=== PATIENT | male | born 1970 | race Caucasian/White ===

== ENCOUNTER 2023-09-21 08:30 | Inpatient (IN) | payer OTHER, MEDICAID ==
[~2023-09-21] VITALS: Ht 193 cm; Wt 114.7 kg
[2023-09-21] MEDS: CLINDAMYCIN 600MG IV 50 ML IV ONE (09:30)
[2023-09-21] MEDS: SODIUM CHLORIDE 0.9% 500 ML IV ONE (09:30)
[2023-09-21 10:26] LABS: Basophils # (auto) 0.1 10 ^3/uL (0-0.2); Basophils % (auto) 1.1 % (0.0-2.0); Eosinophils # (auto) 0.2 10 ^3/uL (0-0.8); Eosinophils % (auto) 2.8 % (0.0-7.0); Hemoglobin 14.4 g/dL (13.5-17.5); Lymphocytes # (auto) 1.9 10 ^3/uL (0.4-5.4); Mean Corpuscular Hemoglobin 31.9 pg (28.0-32.0); Mean Corpuscular Hgb Conc. 34.3 g/dL (32.0-36.0); Mean Corpuscular Volume 92.8 fL (80.0-100.0); Monocytes # (auto) 0.8 10 ^3/uL (0-1.3); Monocytes % (auto) 9.1 % (0.0-12.0); Neutrophils # (auto) 5.6 10 ^3/uL (1.6-8.6); Nucleated Red Blood Cells % 0.1 %; Red Blood Cells 4.52 10^6/uL (4.5-5.90); Red Cell Distribution Width 13.9 % (11.8-14.3); White Blood Cell 8.7 10^3/uL (4.4-10.8)
[2023-09-21 10:53] LABS: Chloride 106 mmol/L (98-107); Potassium 3.7 mmol/L (3.5-5.1); Sodium 137 mmol/L (136-145)
[2023-09-21 10:54] LABS: Anion Gap 4 (5-15); Calcium 9.5 mg/dL (8.5-10.1); Carbon Dioxide 27 mmol/L (20-30)
[2023-09-21 10:56] LABS: Urine Blood Negative /uL (Negative); Urine Clarity Clear (Clear); Urine Color Light-Yellow (Yellow); Urine Protein, UAD Negative (Negative); Urine Urobilinogen Normal (Negative); Urine WBC 1 /hpf (0 - 3)
[2023-09-21 10:58] LABS: Urine Bacteria None Seen /hpf (None Seen)
[2023-09-21 10:59] LABS: BUN/Creatinine Ratio 9.6 (10.0-20.0); Blood Urea Nitrogen 8 mg/dL (9-23); Glucose 107 mg/dL (74-106)
[2023-09-21] MEDS: SODIUM CHLORIDE 0.9% 1,000 ML IV SCH (11:15)
[2023-09-21] MEDS ORDERED: VANCOMYCIN PER PHARMACY 0 MG IV SCH (11:15)
[2023-09-21] MEDS ORDERED: ACETAMINOPHEN 325 MG TAB PO PRN (11:15)
[2023-09-21] MEDS ORDERED: DICL1GEL73 TOP (11:16)
[2023-09-21] MEDS ORDERED: FUR20T PO (11:16)
[2023-09-21] MEDS ORDERED: CYCL-611 PO (11:16)
[2023-09-21] MEDS ORDERED: IBUP-1455 PO (11:16)
[2023-09-21] MEDS ORDERED: OXYC15TA PO (11:16)
[2023-09-21] MEDS ORDERED: TIZA1TAB20 PO (11:16)
[2023-09-21] MEDS ORDERED: NALO4SPR3 NAS (11:16)
[2023-09-21] MEDS ORDERED: OXYC-998 PO (11:16)
[2023-09-21] MEDS ORDERED: IBUPROFEN 800 MG TAB PO PRN (11:30)
[2023-09-21] MEDS: VANCOMYCIN 1GM/200ML 200 ML IV ONE (12:38)
[2023-09-21 12:44] LABS: Triglycerides 167 mg/dL (< 150)
[2023-09-21 12:45] LABS: LDL Cholesterol 126 mg/dL (< 100)
[2023-09-21 12:46] LABS: Cholesterol 180 mg/dL (< 200); HDL Cholesterol 41 mg/dL (40-59)
[2023-09-21] MEDS: CLINDAMYCIN 600MG IV 50 ML IV SCH (14:07)
[2023-09-21 17:13] VITALS: BP 140/80; PULSE 98; RESP 20; TEMP 98.4; O2SAT 90
[2023-09-21 20:00] VITALS: PULSE 86; RESP 20; O2SAT 95
[2023-09-21] MEDS: VANCOMYCIN 1GM/200ML 200 ML IV SCH (20:42)
[2023-09-21] MEDS: oxyCODONE HCL 5MG TAB PO PRN (20:43)
[2023-09-21 21:00] VITALS: BP 126/81; PULSE 86; RESP 18; TEMP 98.2; O2SAT 95
[2023-09-21] MEDS: ASCORBIC ACID 500 MG TAB PO SCH (21:49)
[2023-09-22 01:02] VITALS: BP 130/74; PULSE 87; RESP 20; TEMP 98.6; O2SAT 90
[2023-09-22] MEDS: CYCLOBENZAPRINE HCL 10 MG TAB PO PRN (01:35)
[2023-09-22 05:00] VITALS: BP 155/77; PULSE 96; RESP 19; TEMP 98.4; O2SAT 90
[2023-09-22] MEDS: hydrALAZINE HCL 20 MG/ML VL IV PRN (06:53)
[2023-09-22 09:00] VITALS: BP 130/73; PULSE 87; RESP 22; TEMP 98; O2SAT 94
[2023-09-22] MEDS ORDERED: MULTIPLE VITAMIN TAB PO SCH (10:00)
[2023-09-22] MEDS ORDERED: ENOXAPARIN SOD 40 MG/0.4 ML SYRINGE SC SCH (10:00)
[2023-09-22] MEDS ORDERED: ZINC SULFATE 220mg CAP or TAB PO SCH (10:00)
== END 2023-09-22 10:00 | disposition left against medical advice (07) | DRG 603 ==
LOC: ER 08:30 → OVERFLOW 11:11 → WEST WING 17:28
PROVIDERS: ADMIT Internal Medicine; ATTEND Emergency Medicine
DX: L03.115 Cellulitis of right lower limb (principal); E66.01 Morbid (severe) obesity due to excess calories; I10 Essential (primary) hypertension; F17.210 Nicotine dependence, cigarettes, uncomplicated; E78.2 Mixed hyperlipidemia; G51.0 Bell's palsy; Z53.29 Procedure and treatment not carried out because of patient's decision for other reasons; Z86.73 Personal history of transient ischemic attack (TIA), and cerebral infarction without residual deficits; Z88.6 Allergy status to analgesic agent; Z91.040 Latex allergy status; Z79.899 Other long term (current) drug therapy; Z83.3 Family history of diabetes mellitus; Z82.49 Family history of ischemic heart disease and other diseases of the circulatory system; Z68.30 Body mass index [BMI] 30.0-30.9, adult
CPT/HCPCS: 36415; 80048; 80061; 81001; 83036; 83605; 83880; 84443; 85025; 87040; 87205; 93970; G0378; J3490